=== PATIENT | male | born 1990 | race American Indian/Alaskan Native ===

== ENCOUNTER 2016-11-08 00:33 | Emergency (ER) | payer SELFPAY ==
[2016-11-08] MEDS ORDERED: Clindamycin HCl 150 MG Cap PO ONE (00:34)
[2016-11-08] MEDS ORDERED: Acetaminophen/HYDROcodone 325-5 MG Tab PO ONE ×2 (00:34→02:29)
[2016-11-08] MEDS ORDERED: cefTRIAXone 1 GM Vial IM ONE (02:29)
[2016-11-08] MEDS ORDERED: Take Home: Acetaminophen/HYDROcodone 325-5 MG, 2 Tab Pack PO ONE (02:30)
[2016-11-08] MEDS ORDERED: Take Home: Clindamycin HCl 150 MG Cap, 6 Cap Pack PO ONE ×3 (02:30→02:52)
[2016-11-08] MEDS ORDERED: Aluminum Hydroxide/Magnesium Hydroxide/Simethicone Susp 30 ML Cup PO ONE (02:32)
--- NOTE | 2016-11-08 02:36 | EDM.PDOC ---
ED HPI GENERAL MEDICAL PROBLEM - General Chief Complaint: ENT Problem Stated Complaint: tooth pain Time Seen by Provider: 11/08/16 02:12 Source of Information: Reports: Patient - History of Present Illness INITIAL COMMENTS - FREE TEXT/NARRATIVE: This patient is a 26 year old male that presents to the ER. Patient reports a 4 dya history of right lower frontal dental pain. Patient reports the lat 24 hours having swelling to the right lower jaw. Patient reports it hurts to eat or drink. Patient reports that he was seen at another local ER. Patient reports he continues to have pain and did not have enough abx for today or tomorrow. Patient reports he is not able to fill prescription until Tuesday due to holiday weekend. Patient does have mild trismus. Patient denies rodriguez, dizziness, n , v, d, f, cough, congestion, drainage, neck pain, neck stiffness. NO facial cellulitis. Stable. Onset Date: 11/04/16 Duration: Day(s): (4) Location: Reports: Other (tooth right lower) Severity: Moderate Improves with: Reports: None Worsens with: Reports: None Associated Symptoms: Denies: Confusion, Chest Pain, Cough, cough w sputum, Diaphoresis, Fever/Chills, Headaches, Loss of Appetite, Malaise, Nausea/Vomiting , Rash, Seizure, Shortness of Breath, Syncope, Weakness Left Oral/Mouth Pain Score (Numeric/FACES): 10 - Related Data Allergies Allergy/AdvReac Type Severity Reaction Status Date / Time No Known Allergies Allergy Verified 11/08/16 02:11 Home Meds: Home Meds Amoxicillin [IJP: Amoxicillin] 500 mg PO TID 11/07/16 [History] Past Medical History - Past Health History Medical/Surgical History: Denies Medical/Surgical History HEENT History: Reports: None Cardiovascular History: Reports: None Respiratory History: Reports: None Gastrointestinal History: Reports: None Genitourinary History: Reports: None Musculoskeletal History: Reports: None Neurological History: Reports: None Psychiatric History: Reports: None Endocrine/Metabolic History: Reports: None Hematologic History: Reports: None Immunologic History: Reports: None Oncologic (Cancer) History: Reports: None Dermatologic History: Reports: None - Infectious Disease History Infectious Disease History: Reports: None - Past Surgical History Head Surgeries/Procedures: Reports: None HEENT Surgical History: Reports: Eye Surgery Cardiovascular Surgical History: Reports: None Respiratory Surgical History: Reports: None GI Surgical History: Reports: None Male Surgical History: Reports: None Endocrine Surgical History: Reports: None Neurological Surgical History: Reports: None Musculoskeletal Surgical History: Reports: None Oncologic Surgical History: Reports: None Dermatological Surgical History: Reports: None Social & Family History - Family History Family Medical History: Noncontributory - Tobacco Use Smoking Status *Q: Current Every Day Smoker Years of Tobacco use: 2 Packs/Tins Daily: 0.5 Used Tobacco, but Quit: No Second Hand Smoke Exposure: No - Caffeine Use Caffeine Use: Reports: Coffee - Alcohol Use Days Per Week of Alcohol Use: 0 - Recreational Drug Use Recreational Drug Use: No - Living Situation & Occupation Living situation: Reports: Other Occupation: Employed ED ROS ENT - Review of Systems Review Of Systems: See Below Constitutional: Reports: No Symptoms HEENT: Reports: Dental Pain. Denies: Ear Pain, Throat Pain, Throat Swelling Respiratory: Reports: No Symptoms Cardiovascular: Reports: No Symptoms Endocrine: Reports: No Symptoms GI/Abdominal: Reports: No Symptoms : Reports: No Symptoms Musculoskeletal: Reports: No Symptoms Skin: Reports: No Symptoms Neurological: Reports: No Symptoms Psychiatric: Reports: No Symptoms Hematologic/Lymphatic: Reports: No Symptoms Immunologic: Reports: No Symptoms ED EXAM, ENT - Physical Exam Exam: See Below Exam Limited By: No Limitations General Appearance: Alert, WD/WN, No Apparent Distress Eye Exam: Bilateral Eye: Normal Inspection, PERRL Ears: Normal External Exam, Normal Canal, Hearing Grossly Normal, Normal TMs Nose: Normal Inspection, Normal Mucousa, No Blood Mouth/Throat: Normal Lips, Normal Oropharynx, Dental Abcess (Right lower first premolar moderate. ), Dental Pain, Dental Tenderness (Right lower first premolar. ), Trismus (mild). No: Dental Trauma, Drooling, Dry Mucous Membrane, Hoarse Voice, Lip Swelling, Lip Ulcers, Muffled Voice, Oral Ulcers, Perioral Cyanosis, Throat Pain, Throat Swelling, Tongue Swelling, Tonsillar Erythema, Tonsillar Exudates, Tonsillar Swelling, Uvular Deviation, Uvular Edema Head: Atraumatic, Normocephalic Neck: Normal Inspection, Supple, Non-Tender, Full Range of Motion Respiratory/Chest: No Respiratory Distress, Lungs Clear, Normal Breath Sounds, No Accessory Muscle Use Cardiovascular: Normal Peripheral Pulses, Regular Rate, Rhythm, No Edema, No Gallop, No JVD, No Murmur, No Rub Neurological: Alert, Oriented, Normal Gait Psychiatric: Normal Affect, Normal Mood Skin: Warm, Dry, Intact, Normal Color, No Rash Lymphatic: No Adenopathy Course - Orders/Labs/Meds Meds: Medications Discontinued Medications Generic Name Dose Route Start Last Admin Trade Name Mio PRN Reason Stop Dose Admin Hydrocodone Bitart/Acetaminophen 2 tab 11/08/16 02:29 Freedom 325-5 Mg PO 11/08/16 02:30 ONETIME ONE Hydrocodone Bitart/Acetaminophen 3 packet 11/08/16 02:30 Take Home: Acetaminophen/Hydrocod, 2 Tab Pack PO 11/08/16 02:31 ONETIME ONE Al Hydroxide/Mg Hydroxide 30 ml 11/08/16 02:32 Mag-Al Plus PO 11/08/16 02:33 ONETIME ONE Ceftriaxone Sodium 1 gm 11/08/16 02:29 Rocephin IM 11/08/16 02:30 ONETIME ONE Clindamycin HCl 3 packet 11/08/16 02:30 Take Home: Clindamycin Hcl 150 Mg, 6 Cap Pack PO 11/08/16 02:31 ONETIME ONE Clindamycin HCl 1 packet 11/08/16 02:32 Take Home: Clindamycin Hcl 150 Mg, 6 Cap Pack PO 11/08/16 02:33 ONETIME ONE Lidocaine HCl 5 ml 11/08/16 02:32 Xylocaine 2% Jelly TOP 11/08/16 02:33 ONETIME ONE Lidocaine HCl Confirm 11/08/16 02:55 Xylocaine 1% Administered 11/08/16 02:56 Dose 20 ml .ROUTE .STK-MED ONE Lidocaine HCl Confirm 11/08/16 02:55 Xylocaine 2% Viscous Administered 11/08/16 02:56 Dose 15 ml .ROUTE .STK-MED ONE Departure - Departure Time of Disposition: 02:34 Disposition: Home, Self-Care 01 Condition: Good Clinical Impression: Dental abscess - Discharge Information Instructions: Dental Abscess, [id number] Forms: ED Department Discharge Additional Instructions: Followup with your primary care provider Followup with a dentist Return to the ER for worsening of condition or any emergent concerns Increase fluids Ice to swelling area Fill Clindamycin prescription Take Clindamycine 150mg 2 pills every 6 hours #8 take home; Start tomorrow Morning Freedom 5/325mg 1-2 pills every 4-6 hours as needed for pain #8 no refill - Assessment/Plan Plan: PLEASE SEE RN NOTE FOR PFSH.
[2016-11-08] MEDS ORDERED: Lidocaine 1% 20 ML MDV ONE (02:55)
[2016-11-08] MEDS ORDERED: Lidocaine 2% Viscous Solution 15 ML Cup ONE (02:55)
[2016-11-08] MEDS: Lidocaine 2% Jelly 5 ML Tube TOP ONE ×2 (02:57→03:20)
[2016-11-08] MEDS ORDERED: Lidocaine 2% Viscous Solution 15 ML Cup PO ONE (03:18)
[2016-11-08 04:04] VITALS: BP 135/77
== END 2016-11-08 03:30 | disposition home or self-care (01) ==
LOC: CC.ED 00:33
DX: K04.7 Periapical abscess without sinus (principal); F17.210 Nicotine dependence, cigarettes, uncomplicated
CPT/HCPCS: 96372; 99283; A9270; J0696

== ENCOUNTER 2016-12-05 11:49 | Emergency (ER) | payer SELFPAY ==
[2016-12-05 12:05] VITALS: BP 150/81
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
[2016-12-05 12:48] LABS: CHLORIDE,CL 103 mEq/L (98-106); SODIUM,NA 139 mEq/L (136-145)
[2016-12-05] MEDS ORDERED: Take Home: traMADol 50 MG, 4 Tab Pack PO ONE (12:49)
== END 2016-12-05 13:19 | disposition home or self-care (01) ==
LOC: CC.ED 11:49
DX: Z47.2 Encounter for removal of internal fixation device (principal); R79.89 Other specified abnormal findings of blood chemistry; F17.210 Nicotine dependence, cigarettes, uncomplicated
CPT/HCPCS: 36415; 80053; 85025; 99283; A9270

== ENCOUNTER 2016-12-10 22:35 | Emergency (ER) | payer SELFPAY ==
[2016-12-10] MEDS ORDERED: Ketorolac 10 MG Tab PO ONE (22:36)
[2016-12-10] MEDS ORDERED: Ketorolac 60 MG/2 ML SDV IM ONE (22:58)
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
[2016-12-10] MEDS ORDERED: Take Home: Ketorolac 10 MG Tab, 4 Tab Pack PO ONE (23:25)
[2016-12-11 04:35] VITALS: BP 149/92
== END 2016-12-10 23:35 | disposition home or self-care (01) ==
LOC: CC.ED 22:35
DX: M79.662 Pain in left lower leg (principal); F17.210 Nicotine dependence, cigarettes, uncomplicated; Z88.5 Allergy status to narcotic agent
CPT/HCPCS: 96372; 99282; J1885; A9270-GY

== ENCOUNTER 2020-05-23 17:10 | Emergency (ER) | payer MEDICAID, OTHER ==
[2020-05-23 17:17] VITALS: BP 152/87; PULSE 110
[2020-05-23] MEDS ORDERED: Acetaminophen/HYDROcodone 325-5 MG Tab PO ONE (18:36)
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
[2020-05-23] MEDS ORDERED: Take Home: Acetaminophen/HYDROcodone 325-5 MG, 2 Tab Pack PO ONE (18:47)
== END 2020-05-23 19:00 | disposition home or self-care (01) ==
LOC: CC.ED 17:10
DX: L02.412 Cutaneous abscess of left axilla (principal); Z88.5 Allergy status to narcotic agent; Z72.0 Tobacco use
CPT/HCPCS: 10060; 87070; 87186; 99284-25; A9270-GY